=== PATIENT | male | born 1980 | race Hispanic/Latino ===

== ENCOUNTER 2017-12-16 18:43 | Emergency (ER) | payer OTHER, SELFPAY ==
[2017-12-16 19:12] LABS: #Basophils 0.1 thou/uL (0.0-0.2); #Eosinphils 0.2 thou/uL (0.0-0.7); #Lymphocytes 3.3 thou/uL (1.20-3.40); #Monocytes 0.5 thou/uL (0.11-0.59); #Neutrophils 5.2 thou/uL (1.40-6.50); %Basophils 0.8 % (0.0-1.0); %Eosinophils 2.4 % (0.0-10.0); %Lymphocytes 35.5 % (21.0-51.0); %Monocytes 5.3 % (0.0-10.0); %Neutrophils 55.9 % (42.0-75.0); Hemoglobin 14.4 g/dL (14.0-18.0); Mean Corpuscular Hemoglobin 30.5 pg (27.0-31.0); Mean Corpuscular Volume 89.8 fl (80.0-94.0); Mean Platelet Volume 6.7 fL (7.4-10.4); Platelet Count 336 thou/uL (130-400); RBC Distribution Width 12.2 % (11.5-14.5); Red Blood Cell (RBC) Count 4.71 mill/uL (4.70-6.10); White Blood Cell (WBC) Count 9.4 thou/uL (4.8-10.8)
[2017-12-16 19:33] LABS: ALT (SGPT) 40 U/L (8-55); AST (SGOT) 29 U/L (5-34); Albumin 4.4 g/dL (3.5-5.0); Alkaline Phosphatase 93 U/L (40-150); Anion Gap 13 mmol/L (10-20); BUN (Urea Nitrogen) 5 mg/dL (8.9-20.6); Bilirubin, Total 0.5 mg/dL (0.2-1.2); CK (CPK) 207 U/L (30-200); Calc. Creatinine Clearance 0 mL/min (70-130); Calcium 9.5 mg/dL (7.8-10.44); Carbon Dioxide 25 mmol/L (22-29); Chloride 105 mmol/L (98-107); Estimated GFR-MDRD 87; Glucose 256 mg/dL (70-105); Potassium 3.7 mmol/L (3.5-5.1); Protein, Total 7.4 g/dL (6.0-8.3); Sodium 139 mmol/L (136-145)
[2017-12-16 19:34] LABS: CKMB 1.8 ng/mL (0-6.6); Troponin I 0.011 ng/mL (< 0.028)
--- NOTE | 2017-12-16 20:20 | CT ---
CT HEAD WITHOUT CONTRAST: Technique: Multiple axial tomograms were obtained through the head without IV enhancement. History: Mental status change. FINDINGS: Ventricles have normal size and position. No intracranial hemorrhage, mass, or infarct seen. There is mild frontal lobe volume loss which is more prominent than expected for a patient of this ag e. Consider neurology follow up. IMPRESSION: 1. No acute process identified. 2. Mild frontal lobe volume loss is more prominent than expected for age. POS: [facility]
--- NOTE | 2017-12-16 21:48 | RAD ---
PORTABLE CHEST: History: Chest pain Comparison: 03-03-17 FINDINGS: Lungs appear clear. No infiltrate or edema. Heart and mediastinum unremarkable. IMPRESSION: No acute process identified. POS: [facility]
== END 2017-12-16 21:45 | disposition home or self-care (01) ==
LOC: ERS 18:43
DX: E11.9 Type 2 diabetes mellitus without complications (principal); R07.9 Chest pain, unspecified; I10 Essential (primary) hypertension; F17.210 Nicotine dependence, cigarettes, uncomplicated
CPT/HCPCS: 36415; 70450; 71045; 80053; 82553; 84484; 85025; 93005; 94760

== ENCOUNTER 2022-07-20 02:53 | Emergency (ER) | payer SELFPAY ==
[2022-07-20] MEDS ORDERED: Ketorolac Tromethamine 30 MG/ML VIAL ONE (03:16)
[2022-07-20] MEDS ORDERED: Ondansetron PF 4 MG/2 ML Vial ONE (03:16)
[2022-07-20 04:21] LABS: #Eosinphils 0.1 thou/uL (0.0-0.7); #Lymphocytes 2.1 thou/uL (1.20-3.40); #Monocytes 0.7 thou/uL (0.11-0.59); #Neutrophils 7.6 thou/uL (1.40-6.50); %Basophils 0.3 % (0.0-1.0); %Eosinophils 0.8 % (0.0-10.0); %Lymphocytes 19.9 % (21.0-51.0); %Monocytes 6.5 % (0.0-10.0); %Neutrophils 72.5 % (42.0-75.0); Hemoglobin 14.7 g/dL (14.0-18.0); Mean Corpuscular HGB CONC 34.6 g/dL (32.0-36.0); Mean Corpuscular Volume 89.5 fL (78.0-98.0); Mean Platelet Volume 7.1 fL (7.4-10.4); Platelet Count 370 thou/uL (130-400); RBC Distribution Width 12.5 % (11.5-14.5); Red Blood Cell (RBC) Count 4.75 mill/uL (4.70-6.10); White Blood Cell (WBC) Count 10.5 thou/uL (4.8-10.8)
[2022-07-20 04:35] LABS: ALT (SGPT) 89 U/L (8-55); AST (SGOT) 42 U/L (5-34); Albumin 4.5 g/dL (3.5-5.0); Alkaline Phosphatase 57 U/L (40-110); Anion Gap 13 mmol/L (10-20); BUN (Urea Nitrogen) 16 mg/dL (8.9-20.6); Bilirubin, Total 0.7 mg/dL (0.2-1.2); Calc. Creatinine Clearance 0 mL/min (70-130); Calcium 9.3 mg/dL (7.8-10.44); Carbon Dioxide 24 mmol/L (22-29); Chloride 106 mmol/L (98-107); Estimated GFR 62; Glucose 224 mg/dL (70-105); Potassium 3.9 mmol/L (3.5-5.1); Protein, Total 7.5 g/dL (6.0-8.3); Sodium 139 mmol/L (136-145)
[2022-07-20 05:11] LABS: Bacteria/HPF None Seen HPF (None Seen); Bilirubin Negative (Negative); Blood, Urine 3+ (Negative); Clarity Turbid (Clear); Glucose, Urine (Dipstick) 30 mg/dL (Negative); Ketone, Urine Negative (Negative); Leukocyte Negative Leu/uL (Negative); Nitrite Negative (Negative); Protein, Urine (Dipstick) 20 mg/dL (Neg-Trace); RBC/HPF Greater than 50 HPF (0-3); Specific Gravity, Urine 1.025 (1.002-1.036); Squamous Epithelial 0-3 HPF (0-3); Urobilinogen Normal mg/dL (Less than 2); WBC/HPF 0-3 HPF (0-3)
[2022-07-20] MEDS ORDERED: Morphine 4 MG/ML VIAL ONE (05:24)
[2022-07-20] MEDS ORDERED: Iopamidol-370 76% 500 ML 1 ML ONE (09:22)
== END 2022-07-20 05:48 | disposition home or self-care (01) ==
LOC: ERS 02:53
DX: N13.2 Hydronephrosis with renal and ureteral calculous obstruction (principal); I10 Essential (primary) hypertension; F17.210 Nicotine dependence, cigarettes, uncomplicated
CPT/HCPCS: 74177; 80053; 81003; 81015; 85025; 96374; 96375; J1885; J2270; J2405; Q9967

== ENCOUNTER 2023-02-03 15:36 | Inpatient (IN) | payer SELFPAY ==
[2023-02-03] MEDS ORDERED: Morphine 4 MG/ML VIAL ONE ×2 (15:55→18:03)
[2023-02-03] MEDS ORDERED: Ondansetron PF 4 MG/2 ML Vial ONE ×2 (15:55→18:03)
[2023-02-03 16:16] LABS: #Basophils 0.1 thou/uL (0.0-0.2); #Eosinphils 0.1 thou/uL (0.0-0.7); #Lymphocytes 1.3 thou/uL (1.20-3.40); #Monocytes 0.7 thou/uL (0.11-0.59); #Neutrophils 7.8 thou/uL (1.40-6.50); %Basophils 0.6 % (0.0-1.0); %Eosinophils 0.5 % (0.0-10.0); %Lymphocytes 13.3 % (21.0-51.0); %Monocytes 6.8 % (0.0-10.0); %Neutrophils 78.9 % (42.0-75.0); Hemoglobin 15.6 g/dL (14.0-18.0); Mean Corpuscular HGB CONC 35.5 g/dL (32.0-36.0); Mean Corpuscular Volume 90.3 fl (78.0-98.0); Mean Platelet Volume 6.8 fL (7.4-10.4); Platelet Count 299 10x3/uL (130-400); RBC Distribution Width 11.9 % (11.5-14.5); Red Blood Cell (RBC) Count 4.88 mill/uL (4.70-6.10); White Blood Cell (WBC) Count 9.9 10x3/uL (4.8-10.8)
[2023-02-03 16:39] LABS: ALT (SGPT) 236 U/L (8-55); AST (SGOT) 252 U/L (5-34); Albumin 4.3 g/dL (3.5-5.0); Alkaline Phosphatase 79 U/L (40-110); Anion Gap 13 mmol/L (10-20); BUN (Urea Nitrogen) 13 mg/dL (8.9-20.6); Bilirubin, Total 1.6 mg/dL (0.2-1.2); Calc. Creatinine Clearance 0 mL/min (70-130); Calcium 9.5 mg/dL (7.8-10.44); Carbon Dioxide 24 mmol/L (22-29); Chloride 103 mmol/L (98-107); Estimated GFR 46; Globulin 3.3 g/dL (2.4-3.5); Glucose 205 mg/dL (70-105); Potassium 4.3 mmol/L (3.5-5.1); Protein, Total 7.6 g/dL (6.0-8.3); Sodium 136 mmol/L (136-145)
[2023-02-03 16:53] LABS: Lipase 2623 U/L (8-78)
[2023-02-03 17:38] LABS: Troponin I Less than 0.010 ng/mL (< 0.028)
[2023-02-03] MEDS ORDERED: Ketorolac Tromethamine 30 MG/ML VIAL ONE (18:03)
[2023-02-03] MEDS ORDERED: Piperacillin/Tazobactam 4.5 GM VIAL ONE (19:04)
[2023-02-03 19:36] LABS: Bacteria/HPF 2+ HPF (None Seen); Bilirubin Negative (Negative); Blood, Urine 3+ (Negative); Clarity Turbid (Clear); Glucose, Urine (Dipstick) 500 mg/dL (Negative); Ketone, Urine 20 mg/dL (Negative); Leukocyte 75 Leu/uL (Negative); Nitrite Negative (Negative); Protein, Urine (Dipstick) 30 mg/dL (Neg-Trace); RBC/HPF Greater than 50 HPF (0-3); Specific Gravity, Urine 1.026 (1.002-1.036); Squamous Epithelial 0-3 HPF (0-3); pH, Urine 5.5 (5.0-9.0)
[2023-02-03 21:14] VITALS: BMI 29.0
[2023-02-03] MEDS ORDERED: TETANUS, DIPHTHERIA TOX,ADULT (TDVAX) 0.5 ML VIAL IM ONE (21:23)
[2023-02-03] MEDS ORDERED: cloNIDine 0.1 MG TAB PO PRN (21:23)
[2023-02-03] MEDS ORDERED: hydrALAZINE 20 MG/ML VIAL SLOW IVP PRN (21:23)
[2023-02-03] MEDS ORDERED: Famotidine/PF 20 mg/2ml Vial SLOW IVP SCH (21:30)
[2023-02-03] MEDS ORDERED: Carvedilol 3.125 MG TAB PO SCH (21:30)
[2023-02-03] MEDS: Morphine 4 MG/ML VIAL SLOW IVP PRN (21:34)
[2023-02-03] MEDS: Lactated Ringer's 1,000 ML IV SCH (21:39)
[2023-02-03] MEDS ORDERED: Amlodipine 5 MG TAB PO SCH (21:45)
[2023-02-03] MEDS ORDERED: Ondansetron PF 4 MG/2 ML Vial IVP PRN (23:13)
[2023-02-04] MEDS: Morphine 4 MG/ML VIAL SLOW IVP PRN ×3 (03:22→14:07)
[2023-02-04] MEDS: Lactated Ringer's 1,000 ML IV SCH ×2 (03:28→11:08)
[2023-02-04 05:23] LABS: ALT (SGPT) 153 U/L (8-55); AST (SGOT) 83 U/L (5-34); Albumin 3.8 g/dL (3.5-5.0); Alkaline Phosphatase 66 U/L (40-110); Anion Gap 12 mmol/L (10-20); BUN (Urea Nitrogen) 11 mg/dL (8.9-20.6); Calc. Creatinine Clearance 101 mL/min (70-130); Calcium 8.5 mg/dL (7.8-10.44); Carbon Dioxide 23 mmol/L (22-29); Chloride 105 mmol/L (98-107); Estimated GFR 67; Globulin 2.6 g/dL (2.4-3.5); Glucose 118 mg/dL (70-105); Protein, Total 6.4 g/dL (6.0-8.3); Sodium 136 mmol/L (136-145)
[2023-02-04] MEDS ORDERED: Iopamidol 30 ML ONE ×2 (07:11→08:54)
[2023-02-04] MEDS ORDERED: Bupivacaine HCl 0.5%/Epinephrine 1:200,000/PF 30 ml Vial ONE ×2 (07:11→08:54)
[2023-02-04] MEDS ORDERED: FENTANYL 50 MCG/ML 1 ML VIAL ONE ×3 (08:22→10:04)
[2023-02-04] MEDS ORDERED: Acetaminophen 500 MG TAB PO PRN (08:26)
[2023-02-04] MEDS ORDERED: HYDROcodone/Acetaminophen 5/325 mg Tablet PO PRN (08:26)
[2023-02-04] MEDS ORDERED: HumaLOG 300 UNITS/3 ML VIAL SC PRN (08:28)
[2023-02-04] MEDS ORDERED: Dextrose 50% Abboject 50 ML SYRINGE SLOW IVP PRN (08:28)
[2023-02-04] MEDS ORDERED: Dextrose 5% in Water 1,000 ML IV PRN (08:28)
[2023-02-04] MEDS ORDERED: Acetaminophen/Codeine 30-300mg Tablet PO PRN (08:29)
[2023-02-04] MEDS ORDERED: Acetaminophen 500 MG TAB PO SCH (08:30)
[2023-02-04] MEDS ORDERED: NEOSTIGMINE 3 MG/3 ML SYR 3 MG/3 ML SYRINGE ONE (08:34)
[2023-02-04] MEDS ORDERED: Dexamethasone 20 MG/5 ML VIAL ONE (08:34)
[2023-02-04] MEDS ORDERED: Glycopyrrolate 0.2 MG/ML 5 ML SYRINGE ONE (08:34)
[2023-02-04] MEDS ORDERED: Lidocaine 1% PF 5 ML VIAL ONE (08:34)
[2023-02-04] MEDS ORDERED: Ondansetron PF 4 MG/2 ML Vial ONE (08:34)
[2023-02-04] MEDS ORDERED: PROPOFOL 200 MG/20 ML VIAL ONE (08:34)
[2023-02-04] MEDS ORDERED: Rocuronium Bromide 10 MG/ML (10ML VIAL) ONE (08:34)
[2023-02-04] MEDS ORDERED: metFORMIN 500 MG TAB PO SCH ×2 (08:45→17:00)
[2023-02-04] MEDS ORDERED: Bupivacaine PF 0.5% 30 ML VIAL ONE (08:54)
[2023-02-04] MEDS ORDERED: Tamsulosin HCl 0.4 MG CAP PO SCH (09:00)
[2023-02-04] MEDS ORDERED: Amlodipine 5 MG TAB PO SCH (09:00)
[2023-02-04] MEDS ORDERED: Famotidine/PF 20 mg/2ml Vial SLOW IVP SCH (09:00)
[2023-02-04] MEDS ORDERED: Polyethylene Glycol 3350 17 GM Packet PO SCH (09:00)
[2023-02-04] MEDS ORDERED: Carvedilol 3.125 MG TAB PO SCH (09:00)
[2023-02-04] MEDS ORDERED: Ondansetron ODT 4 MG TAB PO SCH (09:00)
[2023-02-04] MEDS ORDERED: Rosuvastatin 20 MG TAB PO SCH (09:00)
[2023-02-04] MEDS ORDERED: Promethazine HCl 25 MG/ML VIAL IM PRN (09:39)
[2023-02-04] MEDS ORDERED: Ondansetron HCl/PF 4 MG/2 ML Vial IVP PRN (09:39)
[2023-02-04 11:30] VITALS: TEMP 98
[2023-02-04 11:38] VITALS: BP 168/88
== END 2023-02-04 15:30 | disposition home or self-care (01) | DRG 418 ==
LOC: ERS 15:36 → SURG A 19:20
PROVIDERS: ADMIT Specialist; ATTEND Specialist
PROC: 0FT44ZZ Resection of Gallbladder, Percutaneous Endoscopic Approach (ICD-10-PCS; principal; 2023-02-04)
PROC: BF141ZZ Fluoroscopy of Gallbladder, Bile Ducts and Pancreatic Ducts using Low Osmolar Contrast (ICD-10-PCS; 2023-02-04)
DX: K80.00 Calculus of gallbladder with acute cholecystitis without obstruction (principal); N13.1 Hydronephrosis with ureteral stricture, not elsewhere classified; N17.9 Acute kidney failure, unspecified; E78.00 Pure hypercholesterolemia, unspecified; E11.9 Type 2 diabetes mellitus without complications; I10 Essential (primary) hypertension; F17.210 Nicotine dependence, cigarettes, uncomplicated; Z79.84 Long term (current) use of oral hypoglycemic drugs; Z79.899 Other long term (current) drug therapy; Z98.890 Other specified postprocedural states
CPT/HCPCS: 36415; 36416; 47532; 71045; 74176; 76705; 80053; 81003; 81015; 83690; 84478; 84484; 85025; 88304; 93005; 96361; 96365; 96367; 96375; 96376; C1889; J0360; J1100; J1611; J1650; J1885; J1956; J2270; J2405; J2543; J2704; J3010; J7120; Q9967; S0020; S0028

== ENCOUNTER 2023-12-18 19:23 | Emergency (ER) | payer SELFPAY ==
[2023-12-18 20:13] LABS: #Eosinphils 0.2 thou/uL (0.0-0.7); #Monocytes 0.4 thou/uL (0.11-0.59); #Neutrophils 3.2 thou/uL (1.40-6.50); %Basophils 0.4 % (0.0-1.0); %Eosinophils 3.2 % (0.0-10.0); %Lymphocytes 47.1 % (21.0-51.0); %Monocytes 5.1 % (0.0-10.0); %Neutrophils 43.8 % (42.0-75.0); Hematocrit 40.4 % (42.0-52.0); Hemoglobin 13.9 g/dL (14.0-18.0); Mean Corpuscular HGB CONC 34.4 g/dL (32.0-36.0); Mean Corpuscular Volume 87.1 fl (78.0-98.0); Platelet Count 324 10x3/uL (130-400); RBC Distribution Width 12.8 % (11.5-14.5); Red Blood Cell (RBC) Count 4.64 mill/uL (4.70-6.10); White Blood Cell (WBC) Count 7.3 10x3/uL (4.8-10.8)
[2023-12-18 20:38] LABS: Troponin I Less than 0.010 ng/mL (< 0.028)
[2023-12-18 20:40] LABS: ALT (SGPT) 100 U/L (8-55); AST (SGOT) 60 U/L (5-34); Albumin 4.4 g/dL (3.5-5.0); Alkaline Phosphatase 65 U/L (40-110); Anion Gap 11 mmol/L (10-20); BUN (Urea Nitrogen) 11 mg/dL (8.9-20.6); Bilirubin, Total 0.3 mg/dL (0.2-1.2); Calc. Creatinine Clearance 0 mL/min (70-130); Calcium 9.2 mg/dL (7.8-10.44); Carbon Dioxide 23 mmol/L (22-29); Chloride 107 mmol/L (98-107); Estimated GFR 81; Globulin 2.8 g/dL (2.4-3.5); Glucose 199 mg/dL (70-105); Lipase 31 U/L (8-78); Potassium 4.3 mmol/L (3.5-5.1); Protein, Total 7.2 g/dL (6.0-8.3); Sodium 137 mmol/L (136-145)
== END 2023-12-18 23:22 | disposition left against medical advice (07) ==
LOC: ERS 19:23 → EDBD 19:23 → MERGE 19:23 → ERS 23:22
DX: Z53.21 Procedure and treatment not carried out due to patient leaving prior to being seen by health care provider (principal); E10.9 Type 1 diabetes mellitus without complications; I11.0 Hypertensive heart disease with heart failure; F17.200 Nicotine dependence, unspecified, uncomplicated
CPT/HCPCS: 36415; 71045; 80053; 83690; 84484; 85025; 93005; 94760